=== PATIENT | male | born 1955 | race Caucasian/White ===

== ENCOUNTER 2022-07-25 21:17 | Emergency (ER) | payer MEDICARE, OTHER, SELFPAY ==
[2022-07-25] VITALS (8 sets, daily range): BP systolic 128–163; BP diastolic 71–86; PULSE 61–82; RESP 18–20; TEMP 36.4–37; O2SAT 99–100; BMI 25.3
[2022-07-25 22:26] LABS: Add Manual Diff / Slide Review NO; Basophils Absolute Auto 100 /uL (0-100); Eosinophils Absolute Auto 500 /uL (0-450); Hematocrit 23.2 % (41-53); Lymphocytes Absolute Auto 1600 /uL (1100-4500); Lymphocytes Percent Auto 24.5 % (25-40); Mean Corpuscular HGB Conc 27.3 % (30-36); Mean Corpuscular Hemoglobin 14.6 PG (26-34); Mean Corpuscular Volume 53.4 fL (80-100); Monocytes Absolute Auto 600 /uL (0-900); Monocytes Percent Auto 8.8 % (3-14); Neutrophils Absolute Auto 3800 /uL (1500-7000); Neutrophils Percent Auto 56.7 % (50-75); Platelet Count 278 X10^3/uL (150-400); Red Blood Cell Count 4.34 X10^6/uL (4.5-5.9); White Blood Cell Count 6.6 X10^3/uL (4.5-11.0)
[2022-07-25 22:29] LABS: INR 2.2 (0.9-1.3); Prothrombin Time 25.2 SECONDS (10.1-12.7)
[2022-07-25 22:33] LABS: Hemoglobin 6.3 g/dL (13.5-17.5)
[2022-07-25 22:38] LABS: BUN Creatinine Ratio 14.1 (6-22); Blood Urea Nitrogen 14 mg/dL (9-20); Calcium 8.7 mg/dL (8.4-10.2); Carbon Dioxide 27 mmol/L (22-32); Chloride 103 mmol/L (98-107); Estimated Glomerular Filt Rate > 60 mL/min (>60); Glucose 128 mg/dL (80-110); HEMOLYSIS < 15 (0-50); Potassium 3.9 mmol/L (3.4-5.1); Sodium 138 mmol/L (137-145)
[2022-07-25 23:02] LABS: Acanthocytes 1+; Anisocytosis 2+; Hypochromasia 2+; Microcytosis 2+; Ovalocytes 1+; Schistocytes 1+
--- NOTE | 2022-07-25 23:06 | ED.RECABL ---
HPI - Recheck/Abnormal Lab/Rx General Chief Complaint: Recheck/Abnormal Lab/Rx Stated Complaint: sent for a blood transfusion Time Seen by Provider: 07/25/22 21:53 Source: patient Mode of arrival: Wheelchair Limitations: no limitations History of Present Illness HPI narrative: Patient is a 66-year-old male. He is on warfarin secondary to a valve replacement. Was sent to this emergency department for blood transfusion from an outside facility secondary to anemia. Patient has had fatigue and shortness of breath that has been worsening over the past month. He denies any blood in his stool. No vomiting. No blood in his urine. Does not bruise easily. Has no chest pain. Has never had a blood transfusion in the past. He was sent to this outside facility by his primary doctor for further workup when he was found to have anemia. It was reported that at the facilities COVID was negative. His rectal exam showed no signs of occult blood. Related Data Allergies Allergy/AdvReac Type Severity Reaction Status Date / Time No Known Drug Allergies Allergy Verified 07/25/22 21:28 Review of Systems Review of Systems ROS Unobtainable: All systems reviewed & are unremarkable except as noted in HPI and below Patient History Social History Smoking Status: Never smoker Smoking Status: Never smoker Substance Use Type: does not use Exam Initial Vital Signs Initial Vital Signs: Vital Signs Temperature 98.6 F 07/25/22 21:28 Pulse Rate 79 07/25/22 21:28 Respiratory Rate 20 07/25/22 21:28 Blood Pressure 143/71 H 07/25/22 21:28 Pulse Oximetry 100 07/25/22 21:28 Oxygen Delivery Method 07/25/22 21:28 Const General: cooperative, comfortable and No ill appearing [facility] Head: normal to inspection and normocephalic Resp Effort & Inspection: normal respiratory effort Cardio Rate: regular rate GI Inspection: non-distended Neuro General: patient alert, patient awake and moves all extremities Extrem General: normal to inspection and capillary refill normal Course Orders Ordered: ED Orders 07/25/22 22:10 Basic Metabolic Panel Stat Packed Cells Stat Prothrombin Time INR Stat Type and Screen Stat 07/25/22 22:12 Complete Blood Count AUTO DIFF Stat 07/26/22 02:05 Hemoglobin and Hematocrit Stat Vital Signs Vital signs: Vital Signs - 8 hr 07/25/22 21:28 07/25/22 23:28 07/25/22 23:48 Temperature 98.6 F 97.6 F 97.7 F Pulse Rate 79 82 61 Respiratory Rate 20 18 19 Blood Pressure 143/71 H 163/82 H 143/77 H Pulse Oximetry 100 Oxygen Delivery Method Room Air 07/26/22 00:19 07/25/22 23:14 07/25/22 23:16 Temperature 98.2 F Pulse Rate 61 70 74 Respiratory Rate 16 Blood Pressure 124/72 Pulse Oximetry 99 99 Oxygen Delivery Method 07/25/22 23:16 07/25/22 23:29 07/25/22 23:29 Temperature Pulse Rate 65 Respiratory Rate Blood Pressure 128/86 163/82 H Pulse Oximetry 100 Oxygen Delivery Method 07/25/22 23:30 07/25/22 23:30 07/25/22 23:59 Temperature Pulse Rate 61 62 Respiratory Rate Blood Pressure 146/81 H Pulse Oximetry 100 100 Oxygen Delivery Method 07/25/22 23:59 07/26/22 00:00 07/26/22 00:00 Temperature Pulse Rate 63 Respiratory Rate Blood Pressure 143/77 H 144/82 H Pulse Oximetry 100 Oxygen Delivery Method 07/26/22 00:17 07/26/22 00:17 07/26/22 00:30 Temperature Pulse Rate 63 Respiratory Rate Blood Pressure 124/72 127/81 Pulse Oximetry 100 Oxygen Delivery Method 07/26/22 00:30 07/26/22 00:49 07/26/22 00:50 Temperature 97.9 F Pulse Rate 62 61 63 Respiratory Rate 18 Blood Pressure 147/78 H Pulse Oximetry 99 98 Oxygen Delivery Method 07/26/22 00:50 07/26/22 01:00 07/26/22 01:00 Temperature Pulse Rate 61 Respiratory Rate Blood Pressure 147/78 H 140/86 Pulse Oximetry 97 Oxygen Delivery Method 07/26/22 01:30 07/26/22 01:30 07/26/22 02:00 Temperature 97.7 F Pulse Rate 63 62 Respiratory Rate 20 Blood Pressure 143/81 H 140/81 Pulse Oximetry 98 Oxygen Delivery Method 07/26/22 02:31 07/26/22 02:16 07/26/22 02:00 Temperature 97.9 F 98.1 F Pulse Rate 62 62 Respiratory Rate 18 17 Blood Pressure 138/96 H 140/79 140/81 Pulse Oximetry Oxygen Delivery Method 07/26/22 02:00 07/26/22 02:30 07/26/22 02:52 Temperature Pulse Rate 65 60 60 Respiratory Rate Blood Pressure Pulse Oximetry 99 100 98 Oxygen Delivery Method 07/26/22 02:52 07/26/22 02:51 07/26/22 03:00 Temperature 97.8 F Pulse Rate 62 Respiratory Rate 17 Blood Pressure 140/79 147/87 H 144/88 H Pulse Oximetry Oxygen Delivery Method 07/26/22 03:00 07/26/22 03:02 07/26/22 03:02 Temperature Pulse Rate 61 63 Respiratory Rate Blood Pressure 147/87 H Pulse Oximetry 98 99 Oxygen Delivery Method 07/26/22 03:30 07/26/22 03:30 07/26/22 04:00 Temperature Pulse Rate 62 Respiratory Rate Blood Pressure 153/78 H 152/87 H Pulse Oximetry 98 Oxygen Delivery Method 07/26/22 04:00 07/26/22 04:33 Temperature Pulse Rate 61 65 Respiratory Rate 24 Blood Pressure 177/94 H Pulse Oximetry 96 95 Oxygen Delivery Method Room Air MDM - Recheck/Abnormal Lab/Rx Medical Records Attestation: I reviewed the patient's medical records. Lab Data Attestation: I reviewed the patient's lab results. 07/25/22 22:12 07/25/22 22:10 Labs: Lab Results 07/25/22 07/25/22 07/25/22 Range/Units 22:10 22:10 22:10 WBC (4.5-11.0) X10^3/uL RBC (4.5-5.9) X10^6/uL Hgb (13.5-17.5) g/dL Hct (41-53) % MCV (80-100) fL MCH (26-34) PG MCHC (30-36) % RDW (11.6-14.8) % Plt Count (150-400) X10^3/uL Neut % (Auto) (50-75) % Lymph % (Auto) (25-40) % Mitchell % (Auto) (3-14) % Eos % (Auto) (2-4) % Baso % (Auto) (0-2) % Neut # (Auto) (8328-1543) /uL Lymph # (Auto) (3391-2364) /uL Mitchell # (Auto) (0-900) /uL Eos # (Auto) (0-450) /uL Baso # (Auto) (0-100) /uL RBC Morphology Hypochromasia Anisocytosis Microcytosis Ovalocytes Acanthocytes (Spur) Schistocytes PT 25.2 H (10.1-12.7) SECONDS INR 2.2 H (0.9-1.3) Sodium 138 (137-145) mmol/L Potassium 3.9 (3.4-5.1) mmol/L Chloride 103 (98-107) mmol/L Carbon Dioxide 27 (22-32) mmol/L BUN 14 (9-20) mg/dL Creatinine 0.99 (0.66-1.25) mg/dL Estimated GFR > 60 (>60) mL/min BUN/Creatinine Ratio 14.1 (6-22) Glucose 128 H (80-110) mg/dL Calcium 8.7 (8.4-10.2) mg/dL Blood Type A Positive Antibody Screen Negative Crossmatch See Detail 07/25/22 07/26/22 Range/Units 22:12 02:05 WBC 6.6 (4.5-11.0) X10^3/uL RBC 4.34 L (4.5-5.9) X10^6/uL Hgb 6.3 L* 6.4 L* (13.5-17.5) g/dL Hct 23.2 L 23.2 L (41-53) % MCV 53.4 L (80-100) fL MCH 14.6 L (26-34) PG MCHC 27.3 L (30-36) % RDW 21.0 H (11.6-14.8) % Plt Count 278 (150-400) X10^3/uL Neut % (Auto) 56.7 (50-75) % Lymph % (Auto) 24.5 L (25-40) % Mitchell % (Auto) 8.8 (3-14) % Eos % (Auto) 8.0 H (2-4) % Baso % (Auto) 2.0 (0-2) % Neut # (Auto) 3800 (6548-3793) /uL Lymph # (Auto) 1600 (0670-4287) /uL Mitchell # (Auto) 600 (0-900) /uL Eos # (Auto) 500 H (0-450) /uL Baso # (Auto) 100 (0-100) /uL RBC Morphology See below Hypochromasia 2+ H Anisocytosis 2+ H Microcytosis 2+ H Ovalocytes 1+ H Acanthocytes (Spur) 1+ Schistocytes 1+ H PT (10.1-12.7) SECONDS INR (0.9-1.3) Sodium (137-145) mmol/L Potassium (3.4-5.1) mmol/L Chloride (98-107) mmol/L Carbon Dioxide (22-32) mmol/L BUN (9-20) mg/dL Creatinine (0.66-1.25) mg/dL Estimated GFR (>60) mL/min BUN/Creatinine Ratio (6-22) Glucose (80-110) mg/dL Calcium (8.4-10.2) mg/dL Blood Type Antibody Screen Crossmatch MDM Narrative Medical decision making narrative: Patient was anemic upon arrival. This very well could be the cause of his shortness of breath and lightheadedness in his fatigue that has been going on for the past month. There is no indication of any acute bleeding. After discussion of risks and benefits about blood transfusions the patient did agree to blood transfusion. Patient received 2 units of packed red blood cells. Afterwards patient ambulated. He did still gets short of breath but he thought maybe that he recovered quicker. He is on Coumadin however given his aortic valve replacement and the lack of an acute bleed I feel that he should stay on the Coumadin as the risks of coming off of it are higher than staying on it. We did have a discussion that we are unsure where the bleeding is coming from but he does need to talk with his primary doctor about further evaluation of this. Will discharge patient home. He was given return precautions. He expressed understanding and agreement. Discharge Plan Departure Patient Disposition: Home Clinical Impression: Anemia Instructions: Anemia Activity Restrictions/Additional Instructions: It is important that you continue to take all of your medications as directed and contact your primary doctor for further evaluation of the cause of your anemia. Return to the emergency department for any new or worsening symptoms. Referrals: Teressa Adame MD [Primary Care Provider] - Stand Alone Forms: Patient Portal/API
[2022-07-26] VITALS (20 sets, daily range): BP systolic 124–177; BP diastolic 72–96; PULSE 60–67; RESP 16–24; TEMP 36.5–36.8; O2SAT 95–100
[2022-07-26 02:15] LABS: Hematocrit 23.2 % (41-53)
[2022-07-26 02:17] LABS: Hemoglobin 6.4 g/dL (13.5-17.5)
--- NOTE | 2022-07-26 04:33 | PC.NURSE ---
Pt ambulated with steady gait around the department. SpO2 dropped to 93% and HR went up to 93 and when pt sat back in bed his SpO2 returned to 99% and HR to 70s quickly. Pt denies dizziness. Pt reports that he got SOB upon ambulating but feels like he is able to recover more quickly than he did when he first came in.
== END 2022-07-26 05:22 | disposition home or self-care (01) ==
PROVIDERS: Emergency Provider Emergency Medicine; PCP Specialist
DX: D64.9 Anemia, unspecified (principal); R79.89 Other specified abnormal findings of blood chemistry; Z79.01 Long term (current) use of anticoagulants; Z95.2 Presence of prosthetic heart valve
CPT/HCPCS: 36415; 36430; 80048; 85014; 85018; 85025; 85610; 86850; 86900; 86901; 99284; P9016

== ENCOUNTER → 2022-11-23 10:08 | Outpatient (CLI) | payer MEDICARE, OTHER, SELFPAY ==
--- NOTE | 2022-11-23 | DI.NM.S_ITS ---
PROCEDURE: NM BEATRICE PERF SPECT REST & STR Rest and exercise myocardial perfusion SPECT with gated imaging and ejection fraction RADIOPHARMACEUTICAL: 11.9 mCi Tc-99m sestamibi IV at rest and 25.8 mCi Tc-99m sestamibi IV at peak exercise. A one day-protocol was performed. INDICATIONS: Dyspnea on exertion, abnormal EKG, prosthetic heart valve TECHNIQUE: Radiopharmaceutical was injected at peak stress test, and also at rest. SPECT images were obtained. SPECT myocardial perfusion images were displayed in short axis, horizontal long axis, and vertical long axis views. Gated images were reviewed using [employer] software. COMPARISON: None. CARDIAC STRESS: A standard Jaleel treadmill exercise tolerance test was performed by the patient under the supervision of an attending staff. The patient exercised for 8 minutes and 40 seconds; functional aerobic impairment (MCKAY) is -17%. Hemodynamic data: There is normal blood pressure and heart rate response to exercise stress. Patient achieved 77% of maximum predicted heart rate at peak exercise. Symptoms: Patient denied chest pain during exercise. EKG: No diagnostic EKG changes of ischemia; no ectopy. FINDINGS: Raw data: There is good myocardial labeling by radiotracer. No significant motion artifacts. Cdun-yf-nywqz ratio is 0.35 (normal is less than 0.38 for sestamibi tracer, and less than 0.50 for thallium tracer). Left ventricle function: Gated images demonstrate normal left ventricle wall thickening. No segmental wall motion abnormality. No transient ischemic dilation; TID is 0.79 (normal less than 1.3). The left ventricle resting end-diastolic volume is 176 mL. Left ventricle stress ejection fraction is 72%; normal values are above 45%. Myocardial perfusion: There is normal distribution of activity in the left and right ventricular myocardium. No fixed or reversible perfusion defects. IMPRESSION: Low risk submaximal treadmill nuclear stress test. 77% of maximum predicted heart rate reached. 1) No perfusion evidence of ischemia or infarction. 2) Enlarged left ventricle (resting EDV 176cc) with normal wall motion, and normal systolic function E(F post stress 72%). 3) No ST changes during exercise or recovery. 4) No angina during the study. 5) Good exercise tolerance (MCKAY -17%). Only 77% of maximum predicted heart rate achieved. Appropriate BP response to exercise. 6) No prior nuclear stress test available for comparison. Dictated by: Royal Raphael MD on 11/24/2022 at 13:07 Approved by: Royal Raphael MD on 11/24/2022 at 13:10
== END ==
PROVIDERS: PCP Specialist; Referring Provider Internal Medicine Cardiovascular Disease; Visit Provider Internal Medicine Cardiovascular Disease
DX: R06.09 Other forms of dyspnea (principal); R94.31 Abnormal electrocardiogram [ECG] [EKG]; D64.9 Anemia, unspecified; Z95.2 Presence of prosthetic heart valve
CPT/HCPCS: 78452; 93017; A9502